=== PATIENT | female | born 1970 | race Caucasian/White ===

== ENCOUNTER → 2022-06-14 12:54 | Outpatient (CLI) | payer OTHER, SELFPAY ==
--- NOTE | ~2022-06-14 | US_ITS ---
EXAMINATION: US pelvic complete w TV DATE: 06/14/2022 13:23 INDICATION: Ovarian cyst. Comparison:No prior studies for comparison. TECHNIQUE: Multiple transabdominal and endovaginal sonographic images of the pelvis performed. FINDINGS: The uterus measures 7.4 x 3.1 x 4.7 cm. The endometrial complex measures 6 mm. The right ovary is surgically absent. The left ovary measures 4.4 x 4 x 2.8 cm. There is a 3.6 x 3.6 x 2.2 cm simple cyst of the left ovary. There is no free fluid in the pelvis. There are no abnormal masses seen on either side. IMPRESSION: 1. Simple cyst of the left ovary measuring 3.6 cm. Reviewed, dictated and finalized at location A. [facility]
== END ==
PROVIDERS: PCP Nurse Practitioner Family; Visit Provider Obstetrics & Gynecology
DX: N83.202 Unspecified ovarian cyst, left side (principal)
CPT/HCPCS: 76830; 76856